=== PATIENT | female | born 1995 | race Caucasian/White ===

== ENCOUNTER 2018-10-13 07:14 | Inpatient (IN) | payer OTHER ==
[~2018-10-13] VITALS: Ht 152.4 cm; Wt 70.3 kg
[~2018-10-13 07:14] MED LIST: NORCO 5-325 TA1 EACH PO; ZOFRAN4 MG PO
[2018-10-13 07:25] VITALS: BP 145/85
[2018-10-13 07:52] LABS: URINE COLOR YELLOW
[2018-10-13 07:53] LABS: URINE CLARITY CLEAR; URINE GLUCOSE-RANDOM NEGATIVE (Negative); URINE PROTEIN 1+ (Negative)
[2018-10-13 07:54] LABS: URINE BILIRUBIN NEGATIVE (Negative); URINE BLOOD 2+ (Negative); URINE KETONES 1+ (Negative); URINE LEUKOCYTES-REFLEX 2+ (Negative); URINE NITRITE-REFLEX POSITIVE (Negative); URINE UROBILINOGEN 0.2 E.U./dl (0.2-1.0)
[2018-10-13 08:03] LABS: SQUAMOUS 4-10 Moderate /LPF (0-3); URINE RBC 0-2 Rare /HPF (0-2); URINE WBC-REFLEX 6-15 Few /HPF (0-5)
[2018-10-13 08:04] LABS: BACTERIA-REFLEX >30 Many /HPF (None Seen); CASTS None Seen /LPF (None Seen); CRYSTALS None Seen /LPF (None Seen); MUCUS 0-3 Light strn/LPF (None Seen)
[2018-10-13 08:51] LABS: HEMOGLOBIN 13.4 gm/dL (12.0-15.0); MCH 30.3 pg (26.0-34.0); MCHC 34.4 g/dL (28.0-37.0); MCV 88.2 fL (80.0-100.0); MPV 8.6 fl. (7.2-11.1); NUCLEATED RBCS 0 /100WBC; PLATELET COUNT* 183 thou/uL (150-400); RBC 4.42 mil/uL (4.20-5.00); RDW-CV 12.3 % (10.5-14.5); WBC 13.8 thou/uL (4.0-11.0)
[2018-10-13 08:56] LABS: CALCIUM 8.5 mg/dL (8.5-10.1); CREATININE 1.1 mg/dL (0.6-1.3)
[2018-10-13 08:59] LABS: POTASSIUM 2.9 mmol/L (3.5-5.1)
[2018-10-13 09:01] LABS: ALBUMIN 3.1 g/dL (3.4-5.0); TOTAL BILIRUBIN 0.3 mg/dL (<0.1-1.0); TOTAL PROTEIN 7.5 g/dL (6.4-8.2)
[2018-10-13 09:23] LABS: ABSOLUTE LYMPHOCYTES 1.5 thou/uL (0.8-5.3); ABSOLUTE MONOCYTES 0.7 thou/uL (0.0-1.2); ABSOLUTE NEUTROPHILS 11.6 thou/uL (1.6-8.1)
[2018-10-13 09:24] LABS: PLATELET ESTIMATE ADEQUATE
[2018-10-13 11:29] VITALS: BP 130/71
[2018-10-13 12:00] VITALS: BP 141/88
[2018-10-13 13:18] LABS: MAGNESIUM 1.8 mg/dL (1.8-2.4); POTASSIUM 3.5 mmol/L (3.5-5.1)
[2018-10-13 16:00] VITALS: BP 123/65
[2018-10-13 19:50] VITALS: BP 120/70
[2018-10-14 12:14] VITALS: BP 97/56
[2018-10-14 16:14] VITALS: BP 120/78
[2018-10-14 19:45] VITALS: BP 126/80
[2018-10-15] VITALS: BP 116/71
[2018-10-15 04:00] VITALS: BP 121/78
[2018-10-15 12:18] LABS: HEMATOCRIT 35.8 % (37.0-47.0); HEMOGLOBIN 11.9 gm/dL (12.0-15.0); MCH 29.7 pg (26.0-34.0); MCHC 33.2 g/dL (28.0-37.0); MCV 89.2 fL (80.0-100.0); MPV 8.1 fl. (7.2-11.1); RBC 4.01 mil/uL (4.20-5.00); RDW-CV 12.7 % (10.5-14.5); WBC 8.6 thou/uL (4.0-11.0)
[2018-10-15 12:49] LABS: CALCIUM 8.6 mg/dL (8.5-10.1); CREATININE 0.8 mg/dL (0.6-1.3); MAGNESIUM 1.9 mg/dL (1.8-2.4); POTASSIUM 3.2 mmol/L (3.5-5.1)
[2018-10-15 20:45] VITALS: BP 117/70
[2018-10-16 02:58] VITALS: BP 106/72
[2018-10-16 08:34] VITALS: BP 111/76
[2018-10-16] MEDS ORDERED: PERCOCET PO (09:53)
[2018-10-16] MEDS ORDERED: TRAMADOL 50 MG50 MG PO (09:53)
[2018-10-16] MEDS ORDERED: IBUPROFEN 600600 M1 PO (09:53)
[2018-10-16] MEDS ORDERED: CIPRO500 MG PO (09:53)
[2018-10-16] MEDS ORDERED: ZOFRAN ODT4 MG PO (09:53)
[2018-10-16] MEDS ORDERED: TRANSDERM-SCOP1 EACH TRANSDERM (09:53)
[2018-10-16 10:44] VITALS: BP 111/76
[2018-10-16 14:59] VITALS: BP 111/76
== END 2018-10-16 15:04 | disposition home or self-care (01) | DRG 872 ==
LOC: M.ERS 07:14 → M.ORTHSURG 10:06 → M.TBA-ER 10:06 → M.ORTHSURG 10:41
PROVIDERS: Family Medicine; Internal Medicine; ADMIT Internal Medicine
DX: A41.9 Sepsis, unspecified organism (principal); N10 Acute pyelonephritis; E87.6 Hypokalemia; R19.7 Diarrhea, unspecified; B96.20 Unspecified Escherichia coli [E. coli] as the cause of diseases classified elsewhere